=== PATIENT | female | born 1975 | race African-American/Black ===

== ENCOUNTER 2017-10-16 23:21 | Emergency (ER) | payer BC ==
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
[2017-10-17 01:16] VITALS: BP 131/87; TEMP 98.5; O2SAT 98
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
== END 2017-10-17 01:01 | disposition home or self-care (01) ==
LOC: ER 23:21
DX: S00.33XA Contusion of nose, initial encounter (principal); S00.93XA Contusion of unspecified part of head, initial encounter; Y04.2XXA Assault by strike against or bumped into by another person, initial encounter; Y93.9 Activity, unspecified; Y92.9 Unspecified place or not applicable
CPT/HCPCS: 99283

== ENCOUNTER 2018-08-04 21:53 | Emergency (ER) | payer OTHER, SELFPAY ==
[2018-08-05] MEDS ORDERED: KETOROLAC 30 MG/ML INJ ONE (00:53)
--- NOTE | 2018-08-05 00:58 | EDPHYS ---
Physician Documentation [facility] Name: July Escobar Age: 43 yrs Sex: Female : 1975 Arrival Date: 08/04/2018 Time: 22:02 Bed 7 Private MD: Marc Reyes E ED Physician Marc Murray HPI: 08/04 22:53 This 43 yrs old Black Female presents to ER via Wheelchair with complaints of leg pain, jmm swelling. 22:56 The patient presents with pain, that is chronic. jmm 22:56 Onset: The symptoms/episode began/occurred gradually, 10 month(s) ago. Modifying jmm factors: The symptoms are alleviated by nothing. the symptoms are aggravated by movement, weight bearing. This is a 43 year old female with a history of arthritis that presents to the ED with complaints of lower leg swelling and bilateral ankle pain for the past 10 months. Patient states she was diagnosed with arthritis by her PCP but continues to have pain and swelling to both lower extremities. patient denies fever, patient denies shortness of breath. . 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 - Social history:: Smoking status: Patient/guardian denies using tobacco. - Ebola Screening: : No symptoms or risks identified at this time. ROS: 22:56 Constitutional: Negative for fever, chills, and weight loss, Cardiovascular: Negative jmm for chest pain, palpitations, and edema, Respiratory: Negative for shortness of breath, cough, wheezing, and pleuritic chest pain. 22:56 MS/extremity: Positive for pain, swelling. 22:56 All other systems are negative. Exam: 22:56 Constitutional: This is a well developed, well nourished patient who is awake, alert, jmm and in no acute distress. Head/Face: atraumatic. Eyes: EOMI, no conjunctival erythema appreciated ENT: Moist Mucus Membranes Neck: Trachea midline, Supple Chest/axilla: Normal chest wall appearance and motion. Cardiovascular: Regular rate and rhythm. No edema appreciated Respiratory: Normal respirations, no respiratory distress appreciated Abdomen/GI: Non distended, soft Back: Normal ROM Skin: General appearance color normal 22:56 Musculoskeletal/extremity: bilateral edema noted, full pulses, no induration is appreciated, left and right lateral malleolus are mildly TTP, compartments are soft, NVI. 22:56 Skin: Appearance: Color: normal in color. 22:56 Neuro: Orientation: is normal, Mentation: is normal, Memory: is normal. 22:56 Psych: Behavior/mood is pleasant, cooperative. Vital Signs: 22:16 BP 131 / 86; Pulse 98; Resp 20; Temp 98.2(O); Pulse Ox 100% on R/A; Weight 149.69 kg ak1 (R); Height 5 ft. 11 in. (180.34 cm) (R); Pain 10/10; 23:28 BP 121 / 85; Pulse 81; Resp 16; Temp 98.3(O); Pulse Ox 100% on R/A; ak1 02 00:48 BP 109 / 71; Pulse 80; Resp 16; Temp 98.1(O); Pulse Ox 100% on R/A; Pain 7/10; ak1 02 22:16 Body Mass Index 46.03 (149.69 kg, 180.34 cm) [facility] MDM: 08/04 22:56 Patient medically screened. [facility] 08/05 00:57 Data reviewed: vital signs, nurses notes. Counseling: I had a detailed discussion with hilary the patient and/or guardian regarding: the historical points, exam findings, and any diagnostic results supporting the discharge/admit diagnosis, radiology results, the need for outpatient follow up, to return to the emergency department if symptoms worsen or persist or if there are any questions or concerns that arise at home. ED course: US negative for DVT, I discussed with the patient to follow up with PCP for management of edema. Symptoms are chronic. I do not currently suspect an acute process. Patient is afebrile and non toxic in appearance on discharge. Patient given return precautions. Patient understood and agrees with the plan of care. . 02 22:56 Order name: US Extremity Venous W Compression [facility] 08/04 22:57 Order name: Ankle Right 3 View XRAY [facility] 08/04 22:57 Order name: Ankle Left 3 View XRAY [facility] Administered Medications: 00:47 Drug: Ketorolac 30 mg Route: IM; Site: right gluteus; ak1 00:47 Follow up: Response: No adverse reaction ak1 Disposition: 03:58 Co-signature as Attending Physician, Marc Murray MD I agree with the assessment and wa plan of care. Disposition: 08/05/18 00:58 Discharged to Home. Impression: Edema, unspecified, Pain in left leg, Pain in right leg. - Condition is Stable. - Discharge Instructions: Musculoskeletal Pain, Heat Therapy, Peripheral Edema. - Prescriptions for Ibuprofen 800 mg Oral Tablet - take 1 tablet by ORAL route every 12 hours As needed take with food; 20 tablet. - Medication Reconciliation Form, Thank You Letter, Antibiotic Education, Prescription Opioid Use, Work release form form. - Follow up: Marc Reyes MD; When: 1 - 2 days; Reason: Recheck today's complaints, Continuance of care, Re-evaluation by your physician. Signatures: Dispatcher [employer] EDMS Kg Dill PA PA jmm Krenek, Amber, RN RN ak1 Marc Murray MD MD mi Corrections: (The following items were deleted from the chart) 01:05 00:58 08/05/2018 00:58 Discharged to Home. Impression: Edema, unspecified; Pain in left ak1 leg; Pain in right leg. Condition is Stable. Forms are Work release form, Medication Reconciliation Form, Thank You Letter, Antibiotic Education, Prescription Opioid Use. Follow up: Marc Reyes; When: 1 - 2 days; Reason: Recheck today's complaints, Continuance of care, Re-evaluation by your physician. hilary
--- NOTE | 2018-08-05 00:58 | ER ---
Nurse's Notes [facility] Name: July Escobar Age: 43 yrs Sex: Female : 1975 Arrival Date: 08/04/2018 Time: 22:02 Bed 7 Private MD: Marc Reyes E Diagnosis: Edema, unspecified;Pain in left leg;Pain in right leg Presentation: 08/04 22:16 Presenting complaint: Patient states: bilateral ankle and foot pain with swelling X1 ak1 year. pt stated Dr. Lima sent pt for x-rays of the left foot and ankle last year with dx arthritis. Transition of care: patient was not received from another setting of care. Onset of symptoms is unknown. Risk Assessment: Do you want to hurt yourself or someone else? Patient reports no desire to harm self or others. Initial Sepsis Screen: Does the patient meet any 2 criteria? No. Patient's initial sepsis screen is negative. Does the patient have a suspected source of infection? No. Patient's initial sepsis screen is negative. Care prior to arrival: None. 22:16 Method Of Arrival: Wheelchair ak1 22:16 Acuity: NINFA 4 ak1 Triage Assessment: 22:18 General: Appears in no apparent distress. Behavior is calm, cooperative. Pain: ak1 Complains of pain in right foot and left foot. EENT: No signs and/or symptoms were reported regarding the EENT system. Neuro: No deficits noted. Cardiovascular: No deficits noted. Respiratory: No deficits noted. GI: No signs and/or symptoms were reported involving the gastrointestinal system. : No signs and/or symptoms were reported regarding the genitourinary system. Derm: No signs and/or symptoms reported regarding the dermatologic system. 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 - Social history:: Smoking status: Patient/guardian denies using tobacco. - Ebola Screening: : No symptoms or risks identified at this time. Screenin:19 Abuse screen: Denies threats or abuse. Denies injuries from another. Nutritional ak1 screening: No deficits noted. Tuberculosis screening: No symptoms or risk factors identified. Fall Risk None identified. Assessment: 22:20 Reassessment: Patient appears in no apparent distress at this time. No changes from ak1 previously documented assessment. 23:28 Reassessment: Patient appears in no apparent distress at this time. No changes from ak1 previously documented assessment. Patient and/or family updated on plan of care and expected duration. Pain level reassessed. Patient is alert, oriented x 3, equal unlabored respirations, skin warm/dry/pink. 08/05 00:27 Reassessment: Patient appears in no apparent distress at this time. No changes from ak1 previously documented assessment. Patient and/or family updated on plan of care and expected duration. Pain level reassessed. Patient is alert, oriented x 3, equal unlabored respirations, skin warm/dry/pink. pt and family informed of wait for xray and US results. Vital Signs: 08/04 22:16 BP 131 / 86; Pulse 98; Resp 20; Temp 98.2(O); Pulse Ox 100% on R/A; Weight 149.69 kg ak1 (R); Height 5 ft. 11 in. (180.34 cm) (R); Pain 10/10; 23:28 BP 121 / 85; Pulse 81; Resp 16; Temp 98.3(O); Pulse Ox 100% on R/A; ak1 08/05 00:48 BP 109 / 71; Pulse 80; Resp 16; Temp 98.1(O); Pulse Ox 100% on R/A; Pain 7/10; ak1 08/04 22:16 Body Mass Index 46.03 (149.69 kg, 180.34 cm) ak1 ED Course: 08/04 22:02 Patient arrived in ED. es 22:02 Marc Reyes MD is Private Physician. es 22:15 Gloria Maynard, RN is Primary Nurse. ak1 22:18 Triage completed. ak1 22:18 Arm band placed on Patient placed in an exam room, on a stretcher, on pulse oximetry, ak1 Patient notified of wait time. 22:19 Patient has correct armband on for positive identification. Bed in low position. Call ak1 light in reach. Side rails up X2. Adult w/ patient. Pulse ox on. NIBP on. 22:39 Kg Dill PA is PHCP. [facility] [place] 22:39 Marc Murray MD is Attending Physician. jm 23:14 Radiology exam delayed due to ultrasound in the room. sg4 23:22 US Extremity Venous W Compression [facility] In Process Unspecified. EDMS 08/05 00:01 X-ray completed. Portable x-ray completed in exam room. Patient tolerated procedure sg4 well. 00:04 Ankle Right 3 View XRAY In Process Unspecified. EDMS 00:04 Ankle Left 3 View XRAY In Process Unspecified. EDMS 00:51 No provider procedures requiring assistance completed. Patient did not have IV access ak1 during this emergency room visit. 00:57 Marc Reyes MD is Referral Physician. [facility] [place] Administered Medications: 00:47 Drug: Ketorolac 30 mg Route: IM; Site: right gluteus; ak1 00:47 Follow up: Response: No adverse reaction ak1 Outcome: 00:51 Condition: stable ak1 00:58 Discharge ordered by . [facility] [place] 01:04 Discharged to home ambulatory, with family. ak1 01:04 Discharge instructions given to patient, family, Instructed on discharge instructions, follow up and referral plans. no drinking with medication, no driving heavy equipment, medication usage, Demonstrated understanding of instructions, follow-up care, medications, Prescriptions given X 1. 01:05 Patient left the ED. ak1 Signatures: Dispatcher [employer] EDVT Kg Dill PA PA [facility] [place] Cathy Estrada Amber RN RN ak1 Sandra Brown sg4
[2018-08-05 03:04] VITALS: O2SAT 100
[2018-08-05 03:16] VITALS: BP 109/71; TEMP 98.1
--- NOTE | 2018-08-05 09:25 | RAD REPORT ---
EXAM DESCRIPTION: RAD - Ankle Left 3 View -08/05/2018 12:01 am CLINICAL HISTORY: Left ankle pain FINDINGS: No acute fracture or dislocation is seen. Large calcaneal spurs are present. Pes planus deformity is seen. Diffuse edema is present within the soft tissues Mild osteoarthritis involves the ankle
--- NOTE | 2018-08-05 09:30 | RAD REPORT ---
EXAM DESCRIPTION: RAD - Ankle Right 3 View - 08/05/2018 12:02 am CLINICAL HISTORY: Right ankle pain FINDINGS: No fracture or dislocation is seen. Mild osteoarthritis is present. Moderate calcaneal spurs. Pes planus deformity Diffuse edema is present within the soft tissues
--- NOTE | 2018-08-05 09:33 | RAD REPORT ---
EXAM DESCRIPTION: USExtrem Venous W Compress Bil08/04/2018 11:23 pm CLINICAL HISTORY: Bilateral leg pain COMPARISON: none FINDINGS: The common femoral, superficial femoral, popliteal and posterior tibial veins bilaterally are compressible and demonstrate augmentation. Doppler demonstrates good flow. IMPRESSION: No evidence of deep venous thrombosis involving either lower extremity.
== END 2018-08-05 01:05 | disposition home or self-care (01) ==
LOC: ER 21:53
DX: R60.0 Localized edema (principal); M25.572 Pain in left ankle and joints of left foot; M25.571 Pain in right ankle and joints of right foot; M79.605 Pain in left leg; M79.604 Pain in right leg
CPT/HCPCS: 93970; 96372; 99284

== ENCOUNTER 2022-07-04 13:15 | Emergency (ER) | payer OTHER ==
[2022-07-04] MEDS ORDERED: KETOROLAC 30 MG/ML INJ ONE (13:32)
--- NOTE | 2022-07-04 14:28 | RAD REPORT ---
EXAM DESCRIPTION: RAD - Knee Right 3 View - 07/04/2022 2:23 pm CLINICAL HISTORY: PAIN COMPARISON: Knee Right 2 View dated 10/26/2017; Knee Right 3 View dated 12/06/2008; Ankle Right 3 View dated 08/04/2018 FINDINGS: Severe osteoarthritis is present involving the medial joint compartment with joint space l oss, osteophyte and [id number]. Moderate suprapatellar joint effusion. No fracture seen.
--- NOTE | 2022-07-04 14:48 | ER ---
Nurse's Notes [facility] Name: July Escobar Age: 47 yrs Sex: Female : 1975 Arrival Date: 07/04/2022 Time: 13:17 Bed 11 Private MD: Marc Reyes E Diagnosis: Pain in right knee Presentation: 07/04 13:23 Chief complaint: [place] and heard a pop in right knee when descending stairs 2 days ago, hb c/o right knee pain 8/10. Coronavirus screen: At this time, the client does not indicate any symptoms associated with coronavirus-19. Ebola Screen: No symptoms or risks identified at this time. Risk Assessment: Do you want to hurt yourself or someone else? Patient reports no desire to harm self or others. Onset of symptoms was July 02, 2022. 13:23 Method Of Arrival: Ambulatory hb 13:23 Acuity: NINFA 4 hb 13:34 Initial Sepsis Screen: Does the patient meet any 2 criteria? No. Patient's initial hb sepsis screen is negative. Does the patient have a suspected source of infection? No. Patient's initial sepsis screen is negative. Triage Assessment: 13:24 General: Appears in no apparent distress. uncomfortable, Behavior is calm, cooperative. hb Pain: Pain currently is 8 out of 10 on a pain scale. Neuro: Level of Consciousness is awake, alert, obeys commands, Oriented to person, place, time, situation. Cardiovascular: Patient's skin is warm and dry. Respiratory: Respiratory effort is even, unlabored, Respiratory pattern is regular, symmetrical. Historical: - Allergies: 13:24 No Known Allergies; hb - PMHx: 13:24 Arthritis; hb - Immunization history:: Adult Immunizations up to date. - Social history:: Smoking status: Patient denies any tobacco usage or history of. Screenin:33 [facility] ED Fall Risk Assessment (Adult) Score/Fall Risk Level 0 - 2 = Low Risk hb Oriented to surroundings, Maintained a safe environment. Abuse screen: Denies threats or abuse. Denies injuries from another. Nutritional screening: No deficits noted. Tuberculosis screening: No symptoms or risk factors identified. Assessment: 13:33 General: See triage assessment.. hb 14:30 Reassessment: Patient appears in no apparent distress at this time. Patient and/or jl7 family updated on plan of care and expected duration. Pain level reassessed. Patient is alert, oriented x 3, equal unlabored respirations, skin warm/dry/pink. pain rate 3/10. Vital Signs: 13:23 BP 119 / 83; Pulse 86; Resp 16; Temp 97.6; Pulse Ox 100% on R/A; Pain 8/10; hb 15:06 BP 109 / 79; Pulse 82; Resp 17; Temp 97.8; Pulse Ox 100% ; Pain 3/10; jl7 ED Course: 13:17 Patient arrived in ED. am2 13:17 Marc Reyes MD is Private Physician. am2 13:18 Vickie Gomes FNP-C is [facility]. kb 13:18 Salazar Gastelum MD is Attending Physician. kb 13:24 Triage completed. hb 13:24 Arm band placed on. hb 13:33 Patient has correct armband on for positive identification. hb 13:48 Levi Rodríguez RN is Primary Nurse. jl7 14:25 Knee Right 3 View XRAY In Process Unspecified. EDMS 15:06 No provider procedures requiring assistance completed. Patient did not have IV access jl7 during this emergency room visit. Administered Medications: 13:32 Drug: Ketorolac 30 mg Route: IM; Site: right deltoid; hb 14:00 Follow up: Response: No adverse reaction; Pain is decreased jl7 Medication: 13:34 VIS not applicable for this client. hb Outcome: 14:47 Discharge ordered by MD. kb 15:06 Discharged to home ambulatory. jl7 15:06 Condition: stable 15:06 Discharge instructions given to patient, Instructed on discharge instructions, follow up and referral plans. medication usage, Demonstrated understanding of instructions, follow-up care, medications, Prescriptions given X 1. 15:08 Patient left the ED. jl7 Signatures: Dispatcher [employer] EDMA Vickie Gomes FNP-C FNP-Desire Jolly RN MINERVA Levi Rodríguez RN RN jl7 Rosemarie Alcantar am2
--- NOTE | 2022-07-04 14:48 | EDPHYS ---
Physician Documentation [facility] Name: July Escobar Age: 47 yrs Sex: Female : 1975 Arrival Date: 07/04/2022 Time: 13:17 Bed 11 Private MD: Marc Reyes E ED Physician Salazar Gastelum HPI: 07/04 13:50 This 47 yrs old Black Female presents to ER via Ambulatory with complaints of Knee Pain.kb 13:50 The patient presents with pain, tenderness. The complaints affect the right knee. kb Context: The problem was sustained at work, resulted from walking down steps, the patient can fully bear weight, the patient is able to ambulate, Problem is a result from a previous injury: Yes. Onset: The symptoms/episode began/occurred 3 day(s) ago. Modifying factors: The symptoms are alleviated by nothing. the symptoms are aggravated by movement, weight bearing. Associated signs and symptoms: The patient has no apparent associated signs or symptoms. Treatment prior to arrival includes: no previous treatment. Severity of symptoms: At their worst the symptoms were moderate, in the emergency department the symptoms are unchanged. The patient has not experienced similar symptoms in the past. The patient has been recently seen by a physician:. Pt reports she was walking down some steps and felt a pop in right knee, then couldn't bend it. States she iced it and applied heat, now she can move it more, but is still having pain. Historical: - Allergies: 13:24 No Known Allergies; hb - PMHx: 13:24 Arthritis; hb - Immunization history:: Adult Immunizations up to date. - Social history:: Smoking status: Patient denies any tobacco usage or history of. ROS: 13:51 Constitutional: Negative for fever, chills, and weight loss. kb 13:51 MS/extremity: Positive for pain, of the right knee. 13:51 All other systems are negative. Exam: 13:51 Constitutional: This is a well developed, well nourished patient who is awake, alert, kb and in no acute distress. Head/Face: Normocephalic, atraumatic. ENT: Moist Mucous membranes Cardiovascular: Regular rate and rhythm with a normal S1 and S2. No gallops, murmurs, or rubs. No pulse deficits. Respiratory: Respirations even and unlabored. No increased work of breathing. Talking in full sentences Abdomen/GI: Soft, non-tender. No distention Skin: Warm, dry with normal turgor. Normal color. Neuro: Awake and alert, GCS 15, oriented to person, place, time, and situation. Moves all extremities. Normal gait. Psych: Awake, alert, with orientation to person, place and time. Behavior, mood, and affect are within normal limits. 13:51 Musculoskeletal/extremity: Extremities: grossly normal except: noted in the right knee: pain, tenderness, ROM: intact in all extremities, Circulation is intact in all extremities. Sensation intact. Weight bearing: able to fully bear weight. Vital Signs: 13:23 BP 119 / 83; Pulse 86; Resp 16; Temp 97.6; Pulse Ox 100% on R/A; Pain 8/10; hb 15:06 BP 109 / 79; Pulse 82; Resp 17; Temp 97.8; Pulse Ox 100% ; Pain 3/10; jl7 MDM: 13:18 Patient medically screened. kb 13:51 Differential diagnosis: closed fracture, tendonitis, strain, sprain. Data reviewed: vital signs, nurses notes. Data interpreted: Pulse oximetry: on room air is 100 %. Interpretation: normal. 14:40 Counseling: I had a detailed discussion with the patient and/or guardian regarding: the kb historical points, exam findings, and any diagnostic results supporting the discharge/admit diagnosis, radiology results, the need for outpatient follow up, a orthopedic surgeon, to return to the emergency department if symptoms worsen or persist or if there are any questions or concerns that arise at home. ED course: History obtained from: patient. 07/04 13:23 Order name: Knee Right 3 View XRAY; Complete Time: 14:37 kb Administered Medications: 13:32 Drug: Ketorolac 30 mg Route: IM; Site: right deltoid; hb 14:00 Follow up: Response: No adverse reaction; Pain is decreased jl7 Disposition: 15:12 Co-signature as Attending Physician, Salazar Gastelum MD. rn Disposition Summary: 07/04/22 14:47 Discharge Ordered Location: Home Condition: Stable Diagnosis - Pain in right knee kb Followup: kb - With: Emergency Department - When: As needed - Reason: Worsening of condition Followup: kb - With: Private Physician - When: 2 - 3 days - Reason: Recheck today's complaints, Continuance of care, Re-evaluation by your physician Discharge Instructions: - Discharge Summary Sheet kb - Knee Sprain, Adult, [id number] kb - Acute Knee Pain, Adult, [id number] kb Forms: - Medication Reconciliation Form kb - Thank You Letter kb - Antibiotic Education kb - Prescription Opioid Use kb Prescriptions: - Diclofenac Sodium 75 mg Oral tablet,delayed release (DR/EC) - take 1 tablet by ORAL route 2 times per day As needed; 30 tablet; Refills: 0, kb Product Selection Permitted Signatures: Dispatcher [employer] EDMS Vickie Gomes, [employer] M[employer]ER-C ICE CREAM MIXER-Salazar Treviño MD MD rn Baxter, Heather, RN RN Levi Limon RN jl7
[2022-07-04 15:12] VITALS: O2SAT 100
[2022-07-04 15:13] VITALS: BP 109/79; TEMP 97.8
== END 2022-07-04 15:08 | disposition home or self-care (01) ==
LOC: ER 13:15
DX: M25.561 Pain in right knee (principal)
CPT/HCPCS: 96372; 99283